=== PATIENT | female | born 1995 | race Caucasian/White ===

== ENCOUNTER 2016-09-10 07:35 | Day surgery (SDC) | payer BC ==
--- NOTE | ~2016-09-10 | OP ---
Record Of Operation [facility] [address] [place]. [address] NAME: VERN KNOWLES : [birth year] STATUS : [facility]#: [id number] AGE: 20 ADM/REG DATE : 09/10/16 MR#: [id number] REPORT SERV DATE: 09/10/16 DICTATED BY: TAMMY GARNICA DATE: 09/10/16 REPORT STATUS : Draft TRANSCRIBED BY: MODL DATE: 09/10/16 DATE OF PROCEDURE: 09/10/2016 PREOPERATIVE DIAGNOSIS: Follicular lesion, undetermined significance, left thyroid lobe. POSTOPERATIVE DIAGNOSIS: Follicular lesion, undetermined significance, left thyroid lobe. PROCEDURE PERFORMED: Left thyroid lobectomy. SURGEON: Tammy Garnica M.D. BUSINESS PROCESS MODELER: Curt Fletcher. ANESTHESIA: General with nerve integrity monitoring system endotracheal tube. COMPLICATIONS: None. CONDITION: Stable to recovery. INDICATIONS: This 20-year-old female, with a history of Hodgkin's lymphoma, treated with whole body radiation in 2008, now with a 2 cm left thyroid nodule, showing follicular lesion of undetermined significance. Risks, benefits, and alternatives to left thyroid lobectomy were explained and she agreed. PROCEDURE IN DETAIL: The patient was identified in preoperative holding, taken back to the operating room, and placed supine on the operating room table. General anesthesia was established. She was prepped and draped in a standard fashion for the operation. A time- out was called. The patient and procedure were confirmed. A surgical marking pen was used to make an outline in incision site, two fingerbreadths above the sternal notch in the anterior neck 4 cm. It was infiltrated subcutaneously with 1% lidocaine with 1:100,000 epinephrine, a total of 3 mL. The TAP test was positive and electrode placement on endotracheal tube was confirmed with a GlideScope intubation. Using 2.5x loupe magnification headlight illumination, the operation commenced. A 15 blade was used to make the skin incision. Subplatysmal flaps were elevated superiorly and inferiorly. A small branching vein was encountered and tied off with a 3-0 Vicryl suture. The midline strap muscles were divided and the strap muscles were mobilized off the thyroid lobe on the left. There was some dense adhesion likely related to her previous radiation. We were able to dissect through this without too much difficulty using a combination of hemostat, bipolar, cautery and Harmonic scalpel. The cricothyroid space was developed superiorly, the upper pole vessel was clamped with small clips and Harmonic scalpel was used for ligating the vessels on the thyroid side. The gland was rotated out of the visceral compartment. The recurrent laryngeal nerve was identified in the tracheoesophageal groove and confirmed with the nerve stimulating probe. The upper and lower parathyroids were preserved. A piece of tissue on the anterior and inferior pole was sent for parathyroid identification, but it was a lymph node. The inferior thyroid artery was ligated crossing Record Of Operation [facility] [address] [place]. [address] NAME: VERN KNOWLES : [birth year] STATUS : [facility]#: [id number] AGE: 20 ADM/REG DATE : 09/10/16 MR#: [id number] REPORT SERV DATE: 09/10/16 DICTATED BY: TAMMY AGRNICA DATE: 09/10/16 REPORT STATUS : Draft TRANSCRIBED BY: MODL DATE: 09/10/16 over the recurrent laryngeal nerve with a small clip and Harmonic scalpel. The gland was taken off Cartagena's ligament, and the anterior trachea, and transected at the isthmus. The left lobe and isthmus was sent for frozen section showing a follicular lesion, deferred to permanent. Unable to establish the presence of carcinoma, follicular, or papillary. At the end of the case, the wound was irrigated. Bipolar cautery was used for hemostasis. The nerve monitoring probe was used to stimulate the left recurrent laryngeal nerve and a snapshot photograph was taken off the nerve monitor. It was placed in the chart. The strap muscles were reapproximated in the midline with 3-0 interrupted Vicryl suture. The platysma was closed with 3-0 interrupted Vicryl suture, and then the skin closed with a 5-0 running Monocryl, followed by Steri-Strips. The patient was then awakened and taken to recovery in stable condition. PH/MODL Tammy Garnica M.D. / [id number] CC: Tammy Garnica M.D.
[~2016-09-10 07:35] MED LIST: MONONESSA PO
[2016-09-10 08:55] LABS: BASOPHILS 0.6 %; BASOPHILS ABSOLUTE 0.06 10/3/uL (0.0-0.16); EOSINOPHILS 2.7 %; EOSINOPHILS ABSOLUTE 0.28 10/3/uL (0.0-0.53); HEMATOCRIT 37.8 % (36.0-48.0); IMMATURE GRANULOCYTES 0.4 %; IMMATURE GRANULOCYTES ABSOLUTE 0.04 10/3/uL (0.0-0.11); LYMPHOCYTES 41.1 %; LYMPHOCYTES ABSOLUTE 4.31 10/3/uL (0.67-4.30); MEAN CORPUS HGB CONC 34.4 g/dL (32.0-36.0); MEAN CORPUSCULAR HEMOGLOB 31.9 pg (26.0-34.0); MEAN CORPUSCULAR VOLUME 92.6 fL (80-100); MEAN PLATELET VOLUME 9.2 fL (9.2-13.0); MONOCYTES 11.1 %; MONOCYTES ABSOLUTE 1.16 10/3/uL (0.21-1.20); NEUTROPHILS 44.1 %; NEUTROPHILS ABSOLUTE 4.63 10/3/uL (2.02-8.40); PLATELET COUNT 249 10/3/uL (150-400); RBC DISTRIBUTION WIDTH 12.8 % (12.0-16.0); RED CELL COUNT 4.08 10/6/uL (4.0-5.6); WHITE BLOOD CELLS 10.5 10/3/uL (4.5-10.5)
[2016-09-10 08:57] LABS: MANUAL DIFF NO %
[2016-09-10 09:00] LABS: PARTIAL THROMBO TIME 29.7 SEC (22.5-37.2)
[2016-09-10 09:04] LABS: BUN (BLOOD UREA NITROGEN) 13 MG/DL (6-23); CALCIUM, SERUM 9.1 MG/DL (8.5-10.4); CHLORIDE, SERUM 107 MMOL/L (96-112); CO2 (CARBON DIOXIDE) 29 MMOL/L (24-34); CREATININE 0.92 MG/DL (0.55-1.02); GFR AFRICAN AMERICAN 102 ML/MIN (>=60); GFR NON AFRICAN AMERICAN 88 ML/MIN (>=60); GLUCOSE, SERUM 94 MG/DL (60-99); POTASSIUM, SERUM 3.7 MMOL/L (3.5-5.3); SODIUM, SERUM 142 MMOL/L (135-148)
[2016-09-10 10:26] LABS: PTH (INTRAOPERATIVE) 68.6 PG/ML (10.0-65.0); PTH TAT 0 Hrs 00 Mins
== END 2016-09-10 15:19 | disposition home or self-care (01) ==
LOC: SDC 07:35
PROVIDERS: Specialist
PROC: 0GTG0ZZ Resection of Left Thyroid Gland Lobe, Open Approach (ICD-10-PCS; principal; 2016-09-10 10:30)
DX: D34 Benign neoplasm of thyroid gland (principal); R59.0 Localized enlarged lymph nodes; J45.909 Unspecified asthma, uncomplicated; Z79.899 Other long term (current) drug therapy; Z98.890 Other specified postprocedural states
CPT/HCPCS: 71020; 80048; 83970; 84703; 85025; 85730; 88305; 88307; 88331; A9270-GY; J0690; J1170; J2250; J2405; J2710; J3010